=== PATIENT | female | born 1965 | race Caucasian/White ===

== ENCOUNTER 2018-02-09 13:22 | Day surgery (SDC) | payer BC ==
[2018-02-09 13:44] VITALS: RESP 16; TEMP 98.6
[2018-02-09] MEDS ORDERED: LIDOCAINE 1% INJ 10MG/ML (20 ML MDV) SQ STA (14:04)
[2018-02-09 14:42] VITALS: PULSE 83
[2018-02-09 15:01] VITALS: BP 113/73
--- NOTE | 2018-02-13 11:55 | US ---
Therapeutic paracentesis. DATE OF EXAM: 02/09/2018 CLINICAL HISTORY: Ascites The procedure was discussed with the patient. The risks, complications, benefits, and alternatives we re discussed and any questions were answered. Informed consent was obtained. The patient was placed s upine on the ultrasound table and prepped and draped in the usual sterile fashion. All elements of maximal barrier technique were utilized. Under ultrasound guidance, access into the right lower quadrant was obtained, via the paracentesis catheter system and direct ultrasound guidanc e. Approximately 2.6 liters of straw-colored fluid was removed. The patient was stable throughout the pr ocedure and remained stable upon discharge from Department of Radiology. IMPRESSION: Successful therapeutic paracentesis under ultrasound guidance.
== END 2018-02-09 15:18 | disposition home or self-care (01) ==
LOC: RADPROMAIN 13:22
PROVIDERS: ATTEND Obstetrics & Gynecology Gynecologic Oncology
DX: R18.0 Malignant ascites (principal)
CPT/HCPCS: 49083; J2001

== ENCOUNTER 2018-02-17 11:44 | Emergency (ER) | payer BC ==
[2018-02-17] MEDS ORDERED: SODIUM CHLORIDE 0.9% 500 ML IV STA (12:44)
--- NOTE | 2018-02-17 12:48 | ED ---
General Adult HPI - General Chief complaint: Recheck/Abnormal Lab/Rx Stated complaint: abd Bloating/Ca Patent Time Seen by Provider: 02/17/18 12:26 Source: patient, RN notes reviewed, old records reviewed Mode of arrival: wheelchair Limitations: no limitations - History of Present Illness Initial comments: 52-year-old female history of ovarian tumor presenting with abdominal distention and bloating. Patient has recent diagnosis of ovarian tumor with lymphatic spread. She is planned for operation in the next several weeks. She does have scheduled paracentesis for February 20 however she's had worsening symptoms over the past several days. She's had therapeutic paracentesis approximately one week ago. She states her symptoms did improve after this however they have rapidly progressed. She does report low-grade fever at home of 100.2. She's had decreased bowel movements, last bowel movement was 3 days ago. She also has had worsening dyspnea associated with her abdominal distention. Patient completed first treatment of chemotherapy approximately one month ago. - Related Data Home Medications Medication Instructions Recorded Confirmed Acetaminophen Tab [Tylenol Tab] 500 mg PO Q4H PRN 02/08/18 02/17/18 HYDROcodone/APAP 10-325MG [[place] 1 tab PO Q4HR PRN 02/17/18 02/17/18 10-325] Ibuprofen [Motrin Ib] 600 mg PO Q4H PRN 02/17/18 02/17/18 Allergies Allergy/AdvReac Type Severity Reaction Status Date / Time No Known Allergies Allergy Verified 02/17/18 13:32 Review of Systems ROS Statement: Those systems with pertinent positive or pertinent negative responses have been documented in the HPI. ROS Other: All systems not noted in ROS Statement are negative. Past Medical History Past Medical History: Cancer Additional Past Medical History / Comment(s): Ovarian cancer - diagnosis October 2017 History of Any Multi-Drug Resistant Organisms: None Reported Past Surgical History: Section, Hysterectomy Additional Past Surgical History / Comment(s): Ovarian cysts removed 30 years ago. Parital hysterectomy. Mediport placement Past Anesthesia/Blood Transfusion Reactions: No Reported Reaction Past Psychological History: Anxiety Smoking Status: Former smoker Past Alcohol Use History: None Reported Past Drug Use History: Marijuana General Exam Limitations: no limitations General appearance: alert, in no apparent distress Head exam: Present: atraumatic, normocephalic Eye exam: Present: normal appearance, PERRL, EOMI ENT exam: Present: normal exam Neck exam: Present: normal inspection. Absent: tenderness, meningismus Respiratory exam: Present: normal lung sounds bilaterally. Absent: respiratory distress, wheezes Cardiovascular Exam: Present: regular rate, normal rhythm GI/Abdominal exam: Present: soft, distended, tenderness, other (Pelvic cutaneous lesion, minimal bleeding, lymphadenopathy in the right inguinal region ). Absent: guarding, rebound Back exam: Present: normal inspection, full ROM Neurological exam: Present: alert, oriented X3, CN II-XII intact. Absent: motor sensory deficit Psychiatric exam: Present: normal affect, normal mood Skin exam: Present: warm, dry, intact. Absent: cyanosis, diaphoretic Course Vital Signs 02/17/18 02/17/18 02/17/18 12:09 13:55 14:10 Temperature 98.3 F Pulse Rate 102 H 98 92 Respiratory 16 18 18 Rate Blood Pressure 118/82 124/84 127/85 O2 Sat by Pulse 97 98 100 Oximetry 02/17/18 02/17/18 02/17/18 14:17 14:29 14:40 Temperature Pulse Rate 90 94 92 Respiratory 18 18 18 Rate Blood Pressure 121/77 120/71 122/71 O2 Sat by Pulse 92 L 98 98 Oximetry 02/17/18 02/17/18 02/17/18 14:50 15:00 15:10 Temperature Pulse Rate 95 95 98 Respiratory 18 18 18 Rate Blood Pressure 124/73 117/70 121/67 O2 Sat by Pulse 98 98 98 Oximetry - Reevaluation(s) Reevaluation #1: 02/17/18 13:14 Case discussed with interventional radiology, patient will receive therapeutic paracentesis today. Reevaluation #2: 02/17/18 15:30 Patient reevaluated, she is resting comfortably, stable vital signs. She is eager for discharge. Medical Decision Making - Medical Decision Making 52-year-old female with abdominal ascites secondary to ovarian tumor presenting with abdominal distention and dyspnea. Laboratory studies obtained in the emergency department, normal white blood cell count, stable hemoglobin at 12.3, albumin is low at 2.9. Patient does receive ultrasound guided paracentesis in the emergency department by interventional radiology. She is observed after the procedure, vitals are stable, she is comfortable. She will be discharged home with outpatient follow-up. - Lab Data Result diagrams: 02/17/18 13:13 02/17/18 13:13 Lab Results 02/17/18 02/17/18 02/17/18 Range/Units 13:13 13:13 13:13 WBC 6.7 (3.8-10.6) k/uL RBC 4.53 (3.80-5.40) m/uL Hgb 12.3 (11.4-16.0) gm/dL Hct 39.7 (34.0-46.0) % MCV 87.8 (80.0-100.0) fL MCH 27.1 (25.0-35.0) pg MCHC 30.8 L (31.0-37.0) g/dL RDW 15.8 H (11.5-15.5) % Plt Count 437 (150-450) k/uL Neutrophils % 79 % Lymphocytes % 14 % Monocytes % 5 % Eosinophils % 1 % Basophils % 0 % Neutrophils # 5.3 (1.3-7.7) k/uL Lymphocytes # 1.0 (1.0-4.8) k/uL Monocytes # 0.3 (0-1.0) k/uL Eosinophils # 0.1 (0-0.7) k/uL Basophils # 0.0 (0-0.2) k/uL Sodium 135 L (137-145) mmol/L Potassium 4.1 (3.5-5.1) mmol/L Chloride 100 (98-107) mmol/L Carbon Dioxide 22 (22-30) mmol/L Anion Gap 13 mmol/L BUN 17 (7-17) mg/dL Creatinine 0.60 (0.52-1.04) mg/dL Est GFR (CKD-EPI)AfAm >90 (>60 ml/min/1.73 sqM) Est GFR (CKD-EPI)NonAf >90 (>60 ml/min/1.73 sqM) Glucose 93 (74-99) mg/dL Plasma Lactic Acid Sree 1.0 (0.7-2.0) mmol/L Calcium 9.3 (8.4-10.2) mg/dL Total Bilirubin 0.5 (0.2-1.3) mg/dL AST 22 (14-36) U/L ALT 23 (9-52) U/L Alkaline Phosphatase 122 (38-126) U/L Total Protein 6.2 L (6.3-8.2) g/dL Albumin 2.9 L (3.5-5.0) g/dL Amylase 93 (30-110) U/L Lipase 16 L (23-300) U/L Disposition Clinical Impression: Ovarian tumor, Ascites Disposition: HOME SELF-CARE Condition: Fair Instructions: Ascites (ED) Is patient prescribed a controlled substance at d/c from ED?: No Referrals: Earl Singh DO [Primary Care Provider] - 1-2 days Time of Disposition: 15:32
[2018-02-17] MEDS ORDERED: LORazepam 2 MG/ML INJ IV STA (13:07)
[2018-02-17 13:31] LABS: Basophils % (A) 0 %; Eosinophils # (A) 0.1 k/uL (0-0.7); Eosinophils % (A) 1 %; HCT 39.7 % (34.0-46.0); HGB 12.3 gm/dL (11.4-16.0); Lymphocytes % (A) 14 %; MCH 27.1 pg (25.0-35.0); MCHC 30.8 g/dL (31.0-37.0); MCV 87.8 fL (80.0-100.0); Monocytes # (A) 0.3 k/uL (0-1.0); Monocytes % (A) 5 %; Neutrophils # (A) 5.3 k/uL (1.3-7.7); Neutrophils % (A) 79 %; Platelet Count 437 k/uL (150-450); RBC 4.53 m/uL (3.80-5.40); RDW 15.8 % (11.5-15.5); WBC 6.7 k/uL (3.8-10.6)
[2018-02-17 13:41] LABS: ALT 23 U/L (9-52); AST 22 U/L (14-36); Albumin 2.9 g/dL (3.5-5.0); Alkaline Phosphatase 122 U/L (38-126); Amylase 93 U/L (30-110); Anion Gap 13 mmol/L; Blood Urea Nitrogen 17 mg/dL (7-17); Calcium 9.3 mg/dL (8.4-10.2); Carbon Dioxide 22 mmol/L (22-30); Chloride 100 mmol/L (98-107); Glucose 93 mg/dL (74-99); Lipase 16 U/L (23-300); Potassium 4.1 mmol/L (3.5-5.1); Sodium 135 mmol/L (137-145); Total Bilirubin 0.5 mg/dL (0.2-1.3); Total Protein 6.2 g/dL (6.3-8.2)
[2018-02-17] MEDS ORDERED: BENZOCAINE SPRAY 1 CAN TOPICAL STA (13:42)
[2018-02-17] MEDS ORDERED: ONDANSETRON 4 MG/2 ML VIAL IVP STA (13:43)
[2018-02-17 13:55] VITALS: RESP 18
[2018-02-17] MEDS ORDERED: LIDOCAINE 1% INJ 10MG/ML (20 ML MDV) SQ ONE (14:30)
[2018-02-17 16:15] VITALS: BP 118/68; PULSE 95; TEMP 98.8
== END 2018-02-17 16:04 | disposition home or self-care (01) ==
LOC: EC 11:44
DX: D49.59 Neoplasm of unspecified behavior of other genitourinary organ (principal); R18.8 Other ascites; C79.89 Secondary malignant neoplasm of other specified sites; F41.9 Anxiety disorder, unspecified; Z92.21 Personal history of antineoplastic chemotherapy; Z90.710 Acquired absence of both cervix and uterus; Z87.891 Personal history of nicotine dependence
CPT/HCPCS: 36415; 80053; 82150; 83605; 83690; 85025; 87040; 49083; 99284; 96374; 96375; J2060; J2405; J2001

== ENCOUNTER → 2018-02-19 | Day surgery (SDC) | payer BC ==
--- NOTE | 2018-02-19 12:25 | CT ---
EXAMINATION TYPE: CT ChestAbdPelvis w con DATE OF EXAM: 02/19/2018 COMPARISON: NONE HISTORY: Malignant neoplasm of ovary CT DLP: 446.20 mGycm. Automated Exposure Control for Dose Reduction was Utilized. CONTRAST: CT scan of the thorax, abdomen and pelvis is performed with IV Contrast, patient injected with 100 ml mL of Isovue 300. FINDINGS: LUNGS: There are at least 10 subcentimeter pulmonary nodules scattered throughout the lungs. One of t he largest is seen in the left lung apex medially measuring 5 mm. No focal consolidation is seen. No pneumothorax or pleural effusion. MEDIASTINUM: There is an aberrant right subclavian artery, normal variant with mass effect upon the u pper esophagus impressing the esophagus between the aberrant artery and trachea. This can create dysp hasia [place]. Ascending thoracic aorta is within normal limits measuring 3.8 cm on coronal imaging. There are no greater than 1 cm hilar or mediastinal lymph nodes. No pericardial effusion is seen. There is a right-sided Mediport present terminating in the distal superior vena cava. LIVER/GB: There are 10 hepatic lesions identified, the largest cystic and seen within the inferior ri ght hepatic lobe measuring 2.2 cm on series 3 image 66. Some of these lesions are more ill-defined an d are suspicious for metastasis such as on series 3 image 51. This lesion measures 1.3 cm. Fluid is s een around the periphery of the liver however no subserosal implants are identified. PANCREAS: There is mass effect upon the pancreas and ductal prominence however no discrete pancreatic masses seen. SPLEEN: No splenomegaly. ADRENALS: No nodularity or thickening. KIDNEYS: Kidneys enhance and excrete symmetrically without hydronephrosis. BOWEL: A large cystic measures up to 7.2 cm on series 3 image 58 and impresses upon the gastric fundu s. This could be a peripancreatic fluid collection or loculated portion of the ascites. Similarly a s maller lesion seen adjacent to the pancreatic tail and splenic hilum measures 4.0 cm on image 60. Add itional considerations are for cystic mesenteric implants. LYMPH NODES: There are numerous subcutaneous and intramuscular neoplastic implants such as within the inferior rectus muscle on series 3 image 103 measuring 4.0 x 4.9 cm as well as a large necrotic lymp h nodes along the pelvic sidewalls, external iliac chains, superficial femoral chains and internal il iac chains. The largest extent of lymph nodes along the left external iliac chain and pelvic sidewall measures up to 1.9 x 6.8 cm on series 3 image 107 OSSEOUS STRUCTURES: Mild multilevel degenerative changes of the spine are present. No focal suspiciou s osseous lesions are seen. OTHER: Large volume abdominal ascites is present with mass effect upon the adjacent loops of bowel in the abdominal viscera. Ascites is contained to the peritoneal space and is not seen in the retroperi toneum. Mesenteric carcinomatosis is also seen is haziness around the colon such as on series 3 image 86. This is present multifocally throughout the abdomen. Uterus and ovaries are presumed to be surgically absent with a left adnexal cystic lesion likely rela ting to necrotic adenopathy on series 3 image 103. IMPRESSION: 1. Metastatic ovarian carcinoma with at least 10 suspicious pulmonary nodules, 10 hepatic lesions alt harjit some of these appear as simple cysts, extensive pelvic adenopathy, subcutaneous and intramuscul ar metastatic implant within the rectus abdominis musculature and ventral abdominal wall, and omental carcinomatosis. 2. Large volume abdominal ascites that is intraperitoneal with mass effect upon the retroperitoneal o rgans. Paracentesis could be considered.
== END ==
LOC: CANPRESDC → RADPROMAIN 09:23
PROVIDERS: ATTEND Obstetrics & Gynecology Gynecologic Oncology
DX: Z53.9 Procedure and treatment not carried out, unspecified reason (principal)
CPT/HCPCS: 71260; 74177

== ENCOUNTER → 2018-02-19 | Outpatient (CLI) | payer BC ==
[2018-02-19 10:49] LABS: Appearance,Urine Cloudy (Clear); Bacteria,Urine Rare /hpf; Bilirubin,Urine 1+ (Negative); Blood,Urine Negative (Negative); Color,Urine Dark Yellow; Glucose,Urine (UA) Negative (Negative); Hyaline Casts,Urine 12 /lpf (0-2); Ketones,Urine Trace (Negative); Leukocyte Esterase,Urine Negative (Negative); Mucus,Urine Moderate /hpf; Nitrite,Urine Negative (Negative); Protein,Urine 1+ (Negative); RBC,Urine 3 /hpf (0-5); Specific Gravity,Urine 1.031 (1.001-1.035); Squamous Epithelial Cell,Urine 1 /hpf (0-4)
== END | disposition home or self-care (01) ==
LOC: RADCTMAIN 09:16
PROVIDERS: ATTEND Obstetrics & Gynecology Gynecologic Oncology
DX: Z01.818 Encounter for other preprocedural examination (principal)
CPT/HCPCS: 81001; 93005